=== PATIENT | female | born 1940 | race Caucasian/White ===

== ENCOUNTER 2016-07-18 22:05 | Inpatient (IN) | payer MEDICARE, SELFPAY ==
[~2016-07-18] VITALS: Ht 157.5 cm; Wt 104.5 kg
[2016-07-18 23:15] VITALS: BP 146/74
[2016-07-19] VITALS (8 sets, daily range): BP systolic 90–134; BP diastolic 46–68
[2016-07-19] MEDS ORDERED: PERCOCET 5MG/325MG TAB PO PRN (00:30)
[2016-07-19] MEDS ORDERED: ONDANSETRON 4MG/2ML VIAL (J2405) IV PRN (00:30)
[2016-07-19] MEDS ORDERED: ONDANSETRON 4 MG TAB (S0181) PO PRN (00:30)
[2016-07-19] MEDS: ACETAMINOPHEN TAB 650MG DOSE (2X325MG) PO PRN ×3 (01:33→20:25)
[2016-07-19] MEDS: NS 1,000 ML IV SCH ×4 (01:34→21:54)
[2016-07-19 01:36] LABS: BASO % 0.3 % (0.0-1.0); EOS # 0.7 K/mm3 (0.0-0.50); EOS % 4.9 % (0.0-3.0); LARGE UNSTAINED CELL # 0.2 K/mm3 (0.0-0.4); LARGE UNSTAINED CELL % 1.2 % (0.0-4.0); LYMPH # 2.3 K/mm3 (1.5-4.5); LYMPH % 15.5 % (24.0-44.0); MEAN CORPUSCULAR HEMOGLOBIN 30.4 pg (27.0-33.0); MEAN CORPUSCULAR HGB CONC 32.6 g/dl (32.0-36.5); MEAN CORPUSCULAR VOLUME 93.2 fl (80.0-96.0); MONO # 0.9 K/mm3 (0.0-0.8); MONO % 6.9 % (0.0-5.0); NEUTROPHILS # 9.7 K/mm3 (1.8-7.7); NEUTROPHILS % 71.2 % (36.0-66.0); PLATELET COUNT, AUTOMATED 255 k/mm3 (150-450); RED CELL DISTRIBUTION WIDTH 12.5 % (11.5-14.5); WHITE BLOOD COUNT 13.6 K/mm3 (4.0-10.0)
[2016-07-19] MEDS ORDERED: OMEG12002 PO (01:45)
[2016-07-19] MEDS ORDERED: MORP15TASA PO (01:45)
[2016-07-19] MEDS ORDERED: LISI20TA3 PO (01:45)
[2016-07-19] MEDS ORDERED: OXYB10TA PO (01:45)
[2016-07-19] MEDS ORDERED: PROM25TA PO (01:45)
[2016-07-19] MEDS ORDERED: OMEP20TA PO (01:45)
[2016-07-19] MEDS ORDERED: HYDR-3713 PO (01:45)
[2016-07-19] MEDS ORDERED: VITMTA PO (01:45)
[2016-07-19] MEDS ORDERED: ATOR40TA PO (01:50)
[2016-07-19 02:01] LABS: ALBUMIN/GLOBULIN RATIO 1.03 (1.00-1.93); ALKALINE PHOSPHATASE 72 U/L (45-117); ALT/SGPT 30 U/L (12-78); ANION GAP 10 MEQ/L (8-16); AST/SGOT 30 U/L (15-37); BILIRUBIN,TOTAL 0.9 MG/DL (0.2-1.0); BLOOD UREA NITROGEN 45 MG/DL (7-18); CALCIUM LEVEL 7.7 MG/DL (8.8-10.2); CARBON DIOXIDE LEVEL 24 MEQ/L (21-32); CHLORIDE LEVEL 97 MEQ/L (98-107); CREATININE FOR GFR 3.33 MG/DL (0.55-1.02); GLOMERULAR FILTRATION RATE 14.4 (>39); GLUCOSE, FASTING 98 MG/DL (83-110); MAGNESIUM LEVEL 1.5 MG/DL (1.8-2.4); POTASSIUM SERUM 4.9 MEQ/L (3.5-5.1); SODIUM LEVEL 131 MEQ/L (136-145); TOTAL PROTEIN 5.9 GM/DL (6.4-8.2)
[2016-07-19] MEDS: MAG SULF 1GM/100ML (MAG RUN) 1 GM in APPROPRIATE DILUENT 1 EA IV SCH ×2 (02:53→03:42)
[2016-07-19] MEDS: ATORVASTATIN 20 MG TAB PO SCH ×2 (02:53→20:25)
--- NOTE | 2016-07-19 03:01 | HPEPDOC ---
Medical History and Physical Date of Admission July 18, 2016 at 23:26 History and Physical HISTORY AND PHYSICAL Date of admission: 07/18/2016 PCP: Dr. Srinivas Retana Chief complaint: I couldn't stay awake HPI: 76y/o female with hypertension, hyperlipidemia, GERD, recent left shoulder surgery 2 days ago at [place]. Her family brought her to the [place] emergency department today, because they said that she couldn't stay awake and was talking silly. It appears that this is likely secondary to the pain medication and Phenergan that she was given post operatively. In the [place] ED , they did a CT of her head which was unremarkable, and the patient cleared up mentally on her own while in the emergency department. By the time I interviewed the patient, she was quite clear mentally. However, in the [place] ED they noted that her creatinine which is usually in the low ones, was 3.3. They requested transfer so that the patient would be at a facility where she would be able to get nephrology services. Upon questioning, the patient states that she has had a bit of decreased appetite over the last several weeks. She states that prior to her surgery, she was on 2 weeks' worth of antibiotics. She says she was told this was for her urine, but she said she never had any urinary symptoms. She knows that one of the antibiotics as Macrobid, and she is unsure of the other but thinks that it might be Bactrim. She also reports some occasional vomiting, but states that this has not been very significant. Upon further questioning, she also endorses some diarrhea last week. At this time, she has not urinated since this afternoon. In the [place] emergency department , she received IV fluid bolus. Past medical history: Hypertension, hyperlipidemia, GERD, recent left shoulder surgery Past surgical history: left shoulder surgery, tonsillectomy, multiple knee scopes, right total knee replacement, appendectomy, cholecystectomy, hysterectomy, cataract surgery, brachial cleft cyst removal, cardiac stents Family history: hypertension Social history: The patient currently resides with her . She states that she quit smoking 21 years ago. She drinks only very occasional alcoholic drink and denies any drug use. Allergies: Norvasc, Lipitor, beta blockers, indomethacin, lovastatin, penicillins Review of systems: General: Positive for chills, negative for fever Eyes: Negative for vision changes and ocular discharge ENT: Negative for sore throat and nose bleed Cardiovascular: Negative for chest pain and palpitations Respiratory: Positive for cough, negative for shortness of breath GI: Positive for nausea, vomiting, negative for diarrhea and constipation Musculoskeletal: Positive for neck pain Skin: Negative for rash Neuro: Positive for headache and dizziness, negative for numbness and tingling Psych: Positive for depression, negative for suicidal ideation Endocrine: Negative for polyuria, positive for oliguria : Negative for dysuria Heme:. Negative for Bruising Home meds: See below Physical exam: Vital signs: Vital Sign - Last 24 Hours 07/18/16 23:15 Temp 99.2 Pulse 89 Resp 20 B/P (MAP) 146/74 (98) Pulse Ox 91 O2 Delivery Room Air Gen.: awake, alert, no acute distress Eyes: Extraocular movements intact, normal sclera ENT: Moist mucous membranes Cardiovascular: RRR, no murmurs rubs or gallops Lungs: clear to auscultation bilaterally, no rales, rhonchi, or wheeze Abdomen: Soft, NT/ND, normal BS Extremities: No peripheral edema Neuro: alert and oriented 3, normal speech, no focal deficits Psych: Normal mood with congruent affect Labs and radiology: See below Creatinine 3.3 WBC 13.6 Assessment and plan: 76y/o female with hypertension, hyperlipidemia, GERD, recent left shoulder surgery 2 days ago at [place] who presented to the [place] emergency department for altered mental status. While there, she was noted to have acute kidney injury, she was transferred here for nephrology services. 1. Altered mental status: This had entirely resolved by the time she arrived at our facility. It is thought that this is secondary to the postoperative medications she was given. Prior to surgery, the patient states that she only took Tylenol for pain. Postoperatively, she was started on morphine extended release 15 mg twice a day, as well as as needed [place] and Phenergan. At this time, we will stop the extended release morphine as well as Phenergan. We will use as needed [place], and as needed Zofran for any postoperative pain or nausea. 2. Acute kidney injury: We do not have much to go on in terms of determining what the patient's baseline kidney function is, other than a report by the [place] emergency department that her creatinine was previously 1.2. Her creatinine is now 3.3. Etiology at this point is still unclear. It does not appear that she has had any contrasted studies recently. It may be multifactorial from diarrhea last week, occasional postoperative vomiting, and potential Bactrim use in the week or 2 prior to surgery. At this time, we'll bladder scan the patient, and continue to hydrate her. We also will check a FENa and a UA. We will hold her home FLORENTINO inhibitor and HCTZ. 3. Elevated d-dimer: This was noted in the [place] emergency department. Given her recent surgery, she is at a higher risk for PE. Given the patient's kidney function she cannot get a CTA of the chest. We will assess with a VQ scan. 4. Leukocytosis: The patient is afebrile, but does have a mild leukocytosis. We will assess with blood and urine cultures, but I suspect that this may be reactive from her recent surgery. We will continue to monitor. 5. Hypomagnesemia: We will replace. 6. Hypertension: Holding home FLORENTINO inhibitor and HCTZ given acute kidney injury. 7. Hyperlipidemia: Continue home statin. 8. GERD: Continue home PPI. DVT prophylaxis: Heparin Dispo: admit as an inpatient to the service of Dr. Cedeno CODE STATUS: Full code Vital Signs Vital Signs Date Time Temp Pulse Resp B/P (MAP) Pulse Ox O2 Delivery O2 Flow Rate FiO2 07/18/16 23:15 99.2 89 20 146/74 (98) 91 Room Air Laboratory Data Labs 24H Laboratory Tests 2 07/19/16 01:13: White Blood Count 13.6H, Red Blood Count 4.14, Hemoglobin 12.6, Hematocrit 38.6 , Mean Corpuscular Volume 93.2, Mean Corpuscular Hemoglobin 30.4, Mean Corpuscular Hemoglobin Concent 32.6, Red Cell Distribution Width 12.5, Platelet Count 255, Neutrophils (%) (Auto) 71.2H, Lymphocytes (%) (Auto) 15.5L, Monocytes (%) (Auto) 6.9H, Eosinophils (%) (Auto) 4.9H, Basophils (%) (Auto) 0.3 , Neutrophils # (Auto) 9.7H, Lymphocytes # (Auto) 2.3, Monocytes # (Auto) 0.9H, Eosinophils # (Auto) 0.7H, Basophils # (Auto) 0.0, Large Unclassified Cells % 1.2, Large Unclassified Cells # 0.2, Anion Gap 10, Glomerular Filtration Rate 14.4L, Blood Urea Nitrogen 45H, Creatinine 3.33H, Sodium Level 131L, Potassium Level 4.9, Chloride Level 97L, Carbon Dioxide Level 24, Calcium Level 7.7L, Aspartate Amino Transf (AST/SGOT) 30, Alanine Aminotransferase (ALT/SGPT) 30, Total Creatine Kinase 385H, Alkaline Phosphatase 72, Total Bilirubin 0.9, Total Protein 5.9L, Albumin 3.0L, Magnesium Level 1.5L, Creatine Kinase MB 8.8H, Creatine Kinase MB Relative Index 2.28, Troponin I < 0.02, Albumin/Globulin Ratio 1.03 CBC/BMP Laboratory Tests 07/19/16 01:13 Red Blood Count 4.14, Mean Corpuscular Volume 93.2, Mean Corpuscular Hemoglobin 30.4, Mean Corpuscular Hemoglobin Concent 32.6, Red Cell Distribution Width 12.5 , Neutrophils (%) (Auto) 71.2 H, Lymphocytes (%) (Auto) 15.5 L, Monocytes (%) ( Auto) 6.9 H, Eosinophils (%) (Auto) 4.9 H, Basophils (%) (Auto) 0.3, Neutrophils # (Auto) 9.7 H, Lymphocytes # (Auto) 2.3, Monocytes # (Auto) 0.9 H, Eosinophils # (Auto) 0.7 H, Basophils # (Auto) 0.0, Calcium Level 7.7 L, Aspartate Amino Transf (AST/SGOT) 30, Alanine Aminotransferase (ALT/SGPT) 30, Total Creatine Kinase 385 H, Alkaline Phosphatase 72, Total Bilirubin 0.9, Total Protein 5.9 L, Albumin 3.0 L Microbiology Microbiology 07/19/16 Blood Culture, Received Pending Home Medications Scheduled (Lisinopril/Hydrochlorothi 20-25 mg) 1 Tab Tab, 1 TAB PO DAILY ([place] 3 1200 mg) 1 Cap Cap, 1 CAP PO QHS Atorvastatin Calcium (Atorvastatin Calcium) 40 Mg Tab, 60 MG PO QHS Morphine Sulfate (Morphine Sulfate ER) 15 Mg Tabcr, 15 MG PO BID Multivitamins *[employer] STOCKED* (Thera M Plus *[employer]IUM STOCKED*) 1 Tab Tab, 1 TAB PO DAILY Omeprazole (Omeprazole) 20 Mg Tab, 20 MG PO DAILY Oxybutynin Chloride (Oxybutynin Chloride ER) 10 Mg Tab, 10 MG PO DAILY Scheduled PRN Acetaminophen/Hydrocodone (Hydrocodone/Acetaminophen 5-325 mg) 1 Tab Tab, 1 TAB PO Q6H PRN for PAIN Promethazine HCl (Promethazine HCl) 25 Mg Tab, 25 MG PO Q6H PRN for NAUSEA Allergies Coded Allergies: Amlodipine (Unverified Allergy, Unknown, 07/19/16) Atorvastatin (Unverified Allergy, Unknown, 07/19/16) Beta Adrenergic Blockers (Unverified Allergy, Unknown, 07/19/16) Indomethacin (Unverified Allergy, Unknown, 07/19/16) Lovastatin (Unverified Allergy, Unknown, 07/19/16) Penicillins (Unverified Allergy, Unknown, 07/19/16) JANETH ZEPEDA July 19, 2016 03:01
[2016-07-19] MEDS: HEPARIN SOD (PORCINE) 5000 UNITS/ML VIAL SQ SCH ×3 (05:23→20:26)
[2016-07-19] MEDS ORDERED: NS 500 ML IV ONE (07:45)
[2016-07-19] MEDS: MULTIVITAMINS/MINERALS THERAP 1 TAB PO SCH (09:34)
[2016-07-19] MEDS: OMEPRAZOLE 20 MG CAP PO SCH (09:34)
--- NOTE | 2016-07-19 09:55 | REP ---
RENAL ULTRASOUND: Real-time sonographic evaluation of the kidneys performed. The kidneys are small in size consistent with mild to moderate atrophy. Right kidney measures 7.7 x 4.8 x 4.7 cm and left kidney 7.7 x 4.2 x 4.2 cm. There is no hydronephrosis or renal mass bilaterally. There appear to be vascular calcifications in the hilum of each kidney. Urinary bladder is empty. IMPRESSION: No hydronephrosis. Mild to moderate atrophy. Signed by Nabor Betancourt MD 07/19/2016 07:44 P
--- NOTE | 2016-07-19 10:32 | REP ---
TWO VIEW CHEST: Two views of the chest are performed and compared to prior study of 09/18/2006 from [facility]. There is linear bibasilar fibroatelectatic change. No consolidating infiltrate is seen. The left hemidiaphragm is mildly elevated. The heart does not appear to be significantly enlarged. There is mild calcification of the thoracic aorta. The mediastinal silhouette is otherwise unremarkable. There appears to be osteopenia with mild degenerative changes of the spine. IMPRESSION: Mild bibasilar fibroatelectatic change. Signed by Nabor Betancourt MD 07/19/2016 07:45 P
[2016-07-19] MEDS ORDERED: SODIUM CHLORIDE 0.9% 1000 ML IV ONE (11:00)
[2016-07-19 12:33] LABS: CALCIUM LEVEL 8.2 MG/DL (8.8-10.2); CREATININE FOR GFR 3.07 MG/DL (0.55-1.02); GLOMERULAR FILTRATION RATE 15.8 (>39); POTASSIUM SERUM 4.5 MEQ/L (3.5-5.1)
[2016-07-19] MEDS: CHLORASEPTIC SPRAY MT PRN (15:28)
--- NOTE | 2016-07-19 15:41 | IPNPDOC ---
Subjective Date Seen The patient was seen on 07/19/16. Subjective Chief Complaint/HPI The patient is a 76-year-old female admitted with a reason for visit of Acute Renal Failure. Events since last encounter Feeling better, has not made urine independently- had some via straight cath- thirsty, tolerating diet, some shoulder pain at surgical site, no recent dysuria /frequency/nocturia Constitutional: Denies: Chills, Fever Skin: Denies: Rash Pulmonary: Denies: Dyspnea, Cough Cardiovascular: Denies: Chest Pain, Orthopnea Gastrointestinal: Denies: Nausea, Vomiting, Abdominal Pain Objective Physical Examination General Exam: Positive: Alert, Cooperative, No Acute Distress Eye Exam: Negative: Sclera icteric ENT Exam: Negative: Mucous membr. moist/pink (tacky) Chest Exam: Positive: Clear to auscultation, Negative: Rales, Rhonchi, Wheezing Heart Exam: Positive: Rate Normal, Regular Rhythm, Normal S1, Normal S2 Telemetry: Positive: No significant arrhythmia Abdomen Exam: Positive: Normal bowel sounds, Soft, Negative: Tenderness Extremity Exam: Negative: Edema Assessment /Plan Problems (1) STACIE (acute kidney injury) Problem Text: Acute anuric renal failure no evidence of obstruction on ultrasound cause likely multifactorial- poor intake, anti-hypertensive side effect, antibiotic side effect, sedation from pain meds FENA 0.2%- likely prerenal, although diuretic used at home q6 hour labs, continue iv hydration (2) HTN (hypertension) Status: Chronic Problem Text: hypotensive today- obviously holding antihypertensives (3) Hyperlipemia (4) Metabolic encephalopathy Status: Acute Problem Text: resolved- related to med effect (5) Electrolyte abnormality Status: Acute Problem Text: low mg- repeat level in am, continue telemetry monitoring Plan/VTE VTE Prophylaxis Ordered?: Yes (heparin sq) VS, I&O, 24H, Fishbone Vital Signs/I&O Vital Signs Date Time Temp Pulse Resp B/P (MAP) Pulse Ox O2 Delivery O2 Flow Rate FiO2 07/19/16 11:32 97.2 71 18 114/55 (74) 94 Room Air I&O- Last 24 Hours up to 6 AM 07/19/16 06:00 Intake Total 400 ml Output Total 0 ml Balance 400 ml Laboratory Data 24H LABS Laboratory Tests 2 07/19/16 01:13: White Blood Count 13.6H, Red Blood Count 4.14, Hemoglobin 12.6, Hematocrit 38.6 , Mean Corpuscular Volume 93.2, Mean Corpuscular Hemoglobin 30.4, Mean Corpuscular Hemoglobin Concent 32.6, Red Cell Distribution Width 12.5, Platelet Count 255, Neutrophils (%) (Auto) 71.2H, Lymphocytes (%) (Auto) 15.5L, Monocytes (%) (Auto) 6.9H, Eosinophils (%) (Auto) 4.9H, Basophils (%) (Auto) 0.3 , Neutrophils # (Auto) 9.7H, Lymphocytes # (Auto) 2.3, Monocytes # (Auto) 0.9H, Eosinophils # (Auto) 0.7H, Basophils # (Auto) 0.0, Large Unclassified Cells % 1.2, Large Unclassified Cells # 0.2, Anion Gap 10, Glomerular Filtration Rate 14.4L, Blood Urea Nitrogen 45H, Creatinine 3.33H, Sodium Level 131L, Potassium Level 4.9, Chloride Level 97L, Carbon Dioxide Level 24, Calcium Level 7.7L, Aspartate Amino Transf (AST/SGOT) 30, Alanine Aminotransferase (ALT/SGPT) 30, Total Creatine Kinase 385H, Alkaline Phosphatase 72, Total Bilirubin 0.9, Total Protein 5.9L, Albumin 3.0L, Magnesium Level 1.5L, Creatine Kinase MB 8.8H, Creatine Kinase MB Relative Index 2.28, Troponin I < 0.02, Albumin/Globulin Ratio 1.03 07/19/16 06:04: Urine Appearance CLOUDYH, Urine Color YELLOW, Urine pH 5.0, Urine Specific [place] 1.017, Urine Protein NEGATIVE, Urine Glucose (UA) NEGATIVE, Urine Ketones NEGATIVE, Urine Urobilinogen 0.2, Urine Bilirubin NEGATIVE, Urine Leukocyte Esterase 3+H, Urine Blood NEGATIVE, Urine Nitrite NEGATIVE, Urine WBC (Auto) TNTCH, Urine RBC (Auto) 14H, Urine Hyaline Casts (Auto) 0, Urine Bacteria (Auto) 3+H, Urine Squamous Epithelial Cells 2, Urine Sperm (Auto) , Urine Random Creatinine 286.0, Urine Random Sodium 22 07/19/16 08:14: Total Creatine Kinase 634H, Creatine Kinase MB 11.1H, Creatine Kinase MB Relative Index 1.75, Troponin I 0.02 07/19/16 11:46: Anion Gap 10, Glomerular Filtration Rate 15.8L, Blood Urea Nitrogen 47H, Creatinine 3.07H, Sodium Level 130L, Potassium Level 4.5, Chloride Level 97L, Carbon Dioxide Level 23, Calcium Level 8.2L CBC/BMP Laboratory Tests 07/19/16 01:13 Red Blood Count 4.14, Mean Corpuscular Volume 93.2, Mean Corpuscular Hemoglobin 30.4, Mean Corpuscular Hemoglobin Concent 32.6, Red Cell Distribution Width 12.5 , Neutrophils (%) (Auto) 71.2 H, Lymphocytes (%) (Auto) 15.5 L, Monocytes (%) ( Auto) 6.9 H, Eosinophils (%) (Auto) 4.9 H, Basophils (%) (Auto) 0.3, Neutrophils # (Auto) 9.7 H, Lymphocytes # (Auto) 2.3, Monocytes # (Auto) 0.9 H, Eosinophils # (Auto) 0.7 H, Basophils # (Auto) 0.0, Calcium Level 7.7 L, Aspartate Amino Transf (AST/SGOT) 30, Alanine Aminotransferase (ALT/SGPT) 30, Total Creatine Kinase 385 H, Alkaline Phosphatase 72, Total Bilirubin 0.9, Total Protein 5.9 L, Albumin 3.0 L 07/19/16 11:46 Calcium Level 8.2 L Microbiology Microbiology 07/19/16 Blood Culture, Received Pending 07/19/16 Urine Culture, Received Pending ARSALAN EATON MD July 19, 2016 15:41
[2016-07-19] MEDS ORDERED: NS 1,000 ML IV ONE (16:45)
[2016-07-19 18:05] LABS: ANION GAP 12 MEQ/L (8-16); BLOOD UREA NITROGEN 46 MG/DL (7-18); CALCIUM LEVEL 7.3 MG/DL (8.8-10.2); CARBON DIOXIDE LEVEL 20 MEQ/L (21-32); CHLORIDE LEVEL 100 MEQ/L (98-107); CREATININE FOR GFR 2.81 MG/DL (0.55-1.02); GLOMERULAR FILTRATION RATE 17.5 (>39); GLUCOSE, FASTING 89 MG/DL (83-110); POTASSIUM SERUM 4.5 MEQ/L (3.5-5.1); SODIUM LEVEL 132 MEQ/L (136-145)
[2016-07-20 00:37] LABS: CALCIUM LEVEL 7.9 MG/DL (8.8-10.2); CREATININE FOR GFR 2.46 MG/DL (0.55-1.02); GLOMERULAR FILTRATION RATE 20.4 (>39); POTASSIUM SERUM 4.5 MEQ/L (3.5-5.1)
[2016-07-20] MEDS: CHLORASEPTIC SPRAY MT PRN (02:01)
[2016-07-20] MEDS: ACETAMINOPHEN TAB 650MG DOSE (2X325MG) PO PRN ×3 (02:01→15:17)
[2016-07-20 04:45] VITALS: BP 116/57
[2016-07-20 05:15] LABS: BASO % 0.3 % (0.0-1.0); EOS # 0.6 K/mm3 (0.0-0.50); EOS % 5.7 % (0.0-3.0); LARGE UNSTAINED CELL # 0.1 K/mm3 (0.0-0.4); LARGE UNSTAINED CELL % 1.2 % (0.0-4.0); LYMPH # 2.1 K/mm3 (1.5-4.5); LYMPH % 20.2 % (24.0-44.0); MEAN CORPUSCULAR HEMOGLOBIN 30.5 pg (27.0-33.0); MEAN CORPUSCULAR VOLUME 92.5 fl (80.0-96.0); MONO # 0.7 K/mm3 (0.0-0.8); MONO % 7.7 % (0.0-5.0); NEUTROPHILS # 6.3 K/mm3 (1.8-7.7); NEUTROPHILS % 64.9 % (36.0-66.0); PLATELET COUNT, AUTOMATED 228 k/mm3 (150-450); RED CELL DISTRIBUTION WIDTH 12.3 % (11.5-14.5); WHITE BLOOD COUNT 9.6 K/mm3 (4.0-10.0)
[2016-07-20 05:43] LABS: ALBUMIN 2.6 GM/DL (3.2-5.2); ALBUMIN/GLOBULIN RATIO 0.79 (1.00-1.93); BILIRUBIN,TOTAL 1.2 MG/DL (0.2-1.0); CREATININE FOR GFR 2.24 MG/DL (0.55-1.02); GLOMERULAR FILTRATION RATE 22.7 (>39); MAGNESIUM LEVEL 1.9 MG/DL (1.8-2.4); POTASSIUM SERUM 4.5 MEQ/L (3.5-5.1); TOTAL PROTEIN 5.9 GM/DL (6.4-8.2)
[2016-07-20] MEDS: HEPARIN SOD (PORCINE) 5000 UNITS/ML VIAL SQ SCH ×3 (05:58→19:58)
[2016-07-20] MEDS: NS 1,000 ML IV SCH (05:59)
[2016-07-20 07:37] VITALS: BP 111/57
--- NOTE | 2016-07-20 08:06 | IPNPDOC ---
Subjective Date Seen The patient was seen on 07/20/16. Subjective Chief Complaint/HPI The patient is a 76-year-old female admitted with a reason for visit of Acute Renal Failure. Events since last encounter Feeling better, making urine, slept last night, no chest pain, not short of breath, wants to get out of bed more today does have sore throat, chloraseptic nickerson Constitutional: Denies: Chills, Fever Pulmonary: Denies: Dyspnea, Cough Cardiovascular: Denies: Chest Pain, Palpitations Gastrointestinal: Denies: Nausea, Vomiting, Abdominal Pain Objective Physical Examination General Exam: Positive: Alert, Cooperative, No Acute Distress Eye Exam: Negative: Sclera icteric ENT Exam: Positive: Mucous membr. moist/pink (no evidence of thrush), Pharynx Normal Chest Exam: Positive: Clear to auscultation, Negative: Rales, Rhonchi, Wheezing Heart Exam: Positive: Rate Normal, Regular Rhythm, Normal S1, Normal S2 Telemetry: Positive: No significant arrhythmia Abdomen Exam: Positive: Normal bowel sounds, Soft, Negative: Tenderness Extremity Exam: Negative: Edema Assessment /Plan Problems (1) STACIE (acute kidney injury) Problem Text: Acute anuric renal failure- resolving no evidence of obstruction on ultrasound cause likely multifactorial- poor intake, anti-hypertensive side effect, antibiotic side effect, sedation from pain meds FENA 0.2%- likely prerenal, although diuretic used at home continue iv hydration at reduced rate, recheck labs in am (2) HTN (hypertension) Status: Chronic Problem Text: hypotensive resolving- obviously holding antihypertensives- blood pressure reasonably controlled for the current setting (3) Hyperlipemia (4) Metabolic encephalopathy Status: Acute Problem Text: resolved- related to med effect (5) Electrolyte abnormality Status: Acute Problem Text: Hypomagnesemia resolved, no role for further telemetry monitoring (6) Hx of shoulder surgery Status: Acute Problem Text: Left arm in sling Discussed with her orthopedic surgeon at bedside last night d-dimer was elevated in post operative setting- no need for vq scan based on absent clinical symptoms of PE Plan/VTE VTE Prophylaxis Ordered?: Yes (heparin sq) VS, I&O, 24H, Fishbone Vital Signs/I&O Vital Signs Date Time Temp Pulse Resp B/P (MAP) Pulse Ox O2 Delivery O2 Flow Rate FiO2 07/20/16 07:37 97.6 65 18 111/57 (29) 94 Room Air I&O- Last 24 Hours up to 6 AM 07/20/16 05:59 Intake Total 5455 ml Output Total 895 ml Balance 4560 ml Laboratory Data 24H LABS Laboratory Tests 2 07/19/16 08:14: Total Creatine Kinase 634H, Creatine Kinase MB 11.1H, Creatine Kinase MB Relative Index 1.75, Troponin I 0.02 07/19/16 11:46: Anion Gap 10, Glomerular Filtration Rate 15.8L, Blood Urea Nitrogen 47H, Creatinine 3.07H, Sodium Level 130L, Potassium Level 4.5, Chloride Level 97L, Carbon Dioxide Level 23, Calcium Level 8.2L 07/19/16 17:14: Total Creatine Kinase 776H, Creatine Kinase MB 11.9H, Creatine Kinase MB Relative Index 1.53, Troponin I < 0.02, Anion Gap 12, Glomerular Filtration Rate 17.5L, Blood Urea Nitrogen 46H, Creatinine 2.81H, Sodium Level 132L, Potassium Level 4.5, Chloride Level 100, Carbon Dioxide Level 20L, Calcium Level 7.3L 07/19/16 23:56: Anion Gap 8, Glomerular Filtration Rate 20.4L, Blood Urea Nitrogen 43H, Creatinine 2.46H, Sodium Level 132L, Potassium Level 4.5, Chloride Level 103, Carbon Dioxide Level 21, Calcium Level 7.9L 07/20/16 05:06: White Blood Count 9.6, Red Blood Count 3.89L, Hemoglobin 11.9L, Hematocrit 36.0 , Mean Corpuscular Volume 92.5, Mean Corpuscular Hemoglobin 30.5, Mean Corpuscular Hemoglobin Concent 33.0, Red Cell Distribution Width 12.3, Platelet Count 228, Neutrophils (%) (Auto) 64.9, Lymphocytes (%) (Auto) 20.2L, Monocytes (%) (Auto) 7.7H, Eosinophils (%) (Auto) 5.7H, Basophils (%) (Auto) 0.3, Neutrophils # (Auto) 6.3, Lymphocytes # (Auto) 2.1, Monocytes # (Auto) 0.7, Eosinophils # (Auto) 0.6H, Basophils # (Auto) 0.0, Large Unclassified Cells % 1.2, Large Unclassified Cells # 0.1, Anion Gap 9, Glomerular Filtration Rate 22.7L, Blood Urea Nitrogen 45H, Creatinine 2.24H, Sodium Level 133L, Potassium Level 4.5, Chloride Level 104, Carbon Dioxide Level 20L, Calcium Level 8.0L, Aspartate Amino Transf (AST/SGOT) 43H, Alanine Aminotransferase (ALT/SGPT) 30, Alkaline Phosphatase 68, Total Bilirubin 1.2H, Total Protein 5.9L, Albumin 2.6L , Magnesium Level 1.9, Albumin/Globulin Ratio 0.79L CBC/BMP Laboratory Tests 07/19/16 11:46 Calcium Level 8.2 L 07/19/16 17:14 Calcium Level 7.3 L, Total Creatine Kinase 776 H 07/19/16 23:56 Calcium Level 7.9 L 07/20/16 05:06 Calcium Level 8.0 L, Red Blood Count 3.89 L, Mean Corpuscular Volume 92.5, Mean Corpuscular Hemoglobin 30.5, Mean Corpuscular Hemoglobin Concent 33.0, Red Cell Distribution Width 12.3, Neutrophils (%) (Auto) 64.9, Lymphocytes (%) (Auto) 20.2 L, Monocytes (%) (Auto) 7.7 H, Eosinophils (%) (Auto) 5.7 H, Basophils (%) (Auto) 0.3, Neutrophils # (Auto) 6.3, Lymphocytes # (Auto) 2.1, Monocytes # ( Auto) 0.7, Eosinophils # (Auto) 0.6 H, Basophils # (Auto) 0.0, Aspartate Amino Transf (AST/SGOT) 43 H, Alanine Aminotransferase (ALT/SGPT) 30, Alkaline Phosphatase 68, Total Bilirubin 1.2 H, Total Protein 5.9 L, Albumin 2.6 L Microbiology Microbiology 07/19/16 Blood Culture - Preliminary, Resulted No growth after 24 hours . All specim... 07/19/16 Urine Culture, Received Pending ARSALAN EATON MD July 20, 2016 08:06
[2016-07-20] MEDS: MULTIVITAMINS/MINERALS THERAP 1 TAB PO SCH (08:37)
[2016-07-20] MEDS: OMEPRAZOLE 20 MG CAP PO SCH (08:37)
[2016-07-20 14:00] VITALS: BP 137/61
[2016-07-20] MEDS ORDERED: cefTRIAXone SOD 1 GM in D5W MINI-BAG PLUS 50 ML IV SCH (18:00)
[2016-07-20] MEDS: ATORVASTATIN 20 MG TAB PO SCH (19:51)
[2016-07-20] MEDS: NORCO, ANEXSIA 5/325MG TABLET (HYDROcodone/ACETAMINOPHEN) PO PRN (19:52)
[2016-07-20 22:00] VITALS: BP 133/63
[2016-07-21] MEDS: HEPARIN SOD (PORCINE) 5000 UNITS/ML VIAL SQ SCH ×2 (05:54→13:03)
[2016-07-21 06:00] VITALS: BP 160/73
[2016-07-21 06:42] LABS: BASO % 0.3 % (0.0-1.0); EOS # 0.5 K/mm3 (0.0-0.50); EOS % 5.9 % (0.0-3.0); LARGE UNSTAINED CELL # 0.1 K/mm3 (0.0-0.4); LARGE UNSTAINED CELL % 1.2 % (0.0-4.0); LYMPH # 1.5 K/mm3 (1.5-4.5); LYMPH % 17.5 % (24.0-44.0); MEAN CORPUSCULAR HEMOGLOBIN 31.1 pg (27.0-33.0); MEAN CORPUSCULAR VOLUME 94.1 fl (80.0-96.0); MONO # 0.5 K/mm3 (0.0-0.8); MONO % 6.3 % (0.0-5.0); NEUTROPHILS # 5.9 K/mm3 (1.8-7.7); NEUTROPHILS % 68.7 % (36.0-66.0); PLATELET COUNT, AUTOMATED 247 k/mm3 (150-450); RED CELL DISTRIBUTION WIDTH 12.2 % (11.5-14.5); WHITE BLOOD COUNT 8.5 K/mm3 (4.0-10.0)
[2016-07-21 07:01] LABS: ALBUMIN 2.5 GM/DL (3.2-5.2); ALBUMIN/GLOBULIN RATIO 0.76 (1.00-1.93); BILIRUBIN,TOTAL 0.7 MG/DL (0.2-1.0); CALCIUM LEVEL 8.4 MG/DL (8.8-10.2); CREATININE FOR GFR 1.33 MG/DL (0.55-1.02); GLOMERULAR FILTRATION RATE 41.5 (>39); MAGNESIUM LEVEL 1.9 MG/DL (1.8-2.4); POTASSIUM SERUM 4.5 MEQ/L (3.5-5.1); TOTAL PROTEIN 5.8 GM/DL (6.4-8.2)
--- NOTE | 2016-07-21 08:43 | REP ---
Clinical: Cough. Technique: PA and lateral. Comparison: 07/19/2016, 09/18/2006. Findings: Lung bases again demonstrate bibasilar fibroatelectatic changes and blunting to the left costophrenic angle. Small pleural reaction/effusions cannot be excluded. No pneumothorax. Mediastinum and cardiac silhouette stable and within normal limits. Skeletal structures demonstrate age-related degenerative changes. Impression: Bibasilar fibroatelectatic changes and possible small pleural effusions/reactions. Findings similar to recent prior examination dated 07/19/2016. Signed by Juan Palacio MD 07/21/2016 08:33 A
--- NOTE | 2016-07-21 08:55 | REP ---
Clinical: Pain and swelling . Technique: Betancourt scale and color Doppler evaluation using linear high frequency transducer. Findings: Ultrasound examination of the right lower extremity deep venous structures from the common femoral vein to the popliteal vein demonstrates normal compressibility flow and wave patterns in response to respiration and augmentation. There is no evidence for deep venous thrombosis. Impression: No evidence for deep venous thrombosis. Signed by Juan Palacio MD 07/21/2016 08:46 A
[2016-07-21] MEDS: MULTIVITAMINS/MINERALS THERAP 1 TAB PO SCH (09:07)
[2016-07-21] MEDS: NORCO, ANEXSIA 5/325MG TABLET (HYDROcodone/ACETAMINOPHEN) PO PRN (09:08)
[2016-07-21] MEDS: OMEPRAZOLE 20 MG CAP PO SCH (09:08)
[2016-07-21] MEDS: ACETAMINOPHEN TAB 650MG DOSE (2X325MG) PO PRN (13:03)
[2016-07-21] MEDS ORDERED: CEFD1CAP8 PO (14:38)
--- NOTE | 2016-07-22 22:26 | DSES ---
DATE OF ADMISSION: 07/18/2016 DATE OF DISCHARGE: 07/21/2016 No specialist involved in her care. No complications during her stay. No procedures performed during her stay. DISCHARGE DIAGNOSES: Acute renal failure. Hypertension. Hyperlipidemia. Metabolic encephalopathy at the time of presentation. Hypomagnesemia. Recent left arm surgery. The following is a summary of her presentation: This is a 76-year-old female who postoperatively was noted to be more drowsy, less active, was brought to [facility] (ED), was found to have acute renal failure, was transferred to [facility] for nephrology services. She was admitted to the hospitalist service, was noted to have a fractional excretion of sodium (FENa) of 0.2%, was felt to be prerenal based on her use of diuretics, poor oral intake, complicated by her altered mental status, most likely related to decreased clearance of opiates. At home, also, she was taking angiotensin-converting enzyme (FLORENTINO) inhibitors and recently had been on Bactrim. She responded rapidly to fluids from her initial anuric state. She did have urinary retention, most likely related to her opioids and did require a Portillo catheter, which was in place at the time of discharge. She did have a social visit from her orthopedic surgeon from [place] and had a doting family during her stay. On the day of discharge, she is doing well. She is a little nervous about going home with the Portillo catheter, but has passed physical therapy and appears to be comfortable with the plan. Temperature is 98.5, pulse 56, respiratory rate 18, blood pressure 160/73, 93% on room air. She is awake, appropriately interactive, pleasantly conversant, in no acute distress. Breathing is symmetrical and rested. Heart: Regular rate and rhythm. Abdomen: Soft, doughy, nontender. There was some increased right lower extremity compared to left lower extremity on the day of discharge and a lower extremity Doppler was negative. I believe this is just related to fluids during the stay. I did discuss the case with Dr. Retana by phone. She is to followup with Dr. Retana, which will hopefully be scheduled for 07/24/2016, this week. She is to remove her Portillo catheter one day prior to her visit with Dr. Retana. 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 Medications at the time of discharge include: - Omnicef 300 mg by mouth twice daily as she was also noted to have an Escherichia (E) coli urinary tract infection, and she was noted to have E coli in her urine at 50,000 colony forming units during her stay. We elected to treat in the presence of urinary retention. - atorvastatin 60 mg by mouth daily at bedtime. - Lisinopril/hydrochlorothiazide 20/25, one tablet by mouth daily. This can be restarted. - multivitamin tablet daily. - fish oil one capsule by mouth daily at bedtime. - omeprazole 20 mg by mouth daily. - oxybutynin 10 mg by mouth daily. I have suggested that she discontinue all of her opioid pain medications and her promethazine and continue with Tylenol [id number] as needed for pain.
== END 2016-07-21 15:45 | disposition home or self-care (01) | DRG 682 ==
LOC: EDBD 23:26 → M PCU 23:26 → M MS5PR 07-20 10:05
PROVIDERS: ADMIT Hospitalist; ATTEND Hospitalist
DX: N17.9 Acute kidney failure, unspecified (principal); G93.41 Metabolic encephalopathy; I10 Essential (primary) hypertension; E78.5 Hyperlipidemia, unspecified; E83.42 Hypomagnesemia; R33.9 Retention of urine, unspecified; B96.29 Other Escherichia coli [E. coli] as the cause of diseases classified elsewhere; K21.9 Gastro-esophageal reflux disease without esophagitis; Z87.891 Personal history of nicotine dependence; Z79.899 Other long term (current) drug therapy; Z88.0 Allergy status to penicillin; Z88.8 Allergy status to other drugs, medicaments and biological substances